=== PATIENT | male | born 1970 | race Caucasian/White ===

== ENCOUNTER 2021-04-09 07:09 | Outpatient (CLI) | payer OTHER ==
[~2021-04-09] VITALS: Ht 182.9 cm; Wt 124.1 kg
[2021-04-14] MEDS ORDERED: TR1C15 TP (14:33)
[2021-04-14] MEDS ORDERED: ATOR20TA66 PO (14:33)
[2021-04-14] MEDS ORDERED: GABA300C PO (14:33)
[2021-04-14] MEDS ORDERED: NAPR500T8 PO (14:33)
[2021-04-14] MEDS ORDERED: PRAZ2CAP2 PO (14:33)
[2021-04-14] MEDS ORDERED: VENL225T PO (14:33)
[2021-04-14] MEDS ORDERED: CYPR4TAB41 PO (14:33)
[2021-04-14] MEDS ORDERED: MELA3CAP2 PO (14:33)
[2021-04-14] MEDS ORDERED: DIVA500T15 PO (14:33)
[2021-04-14] MEDS ORDERED: CETI10TA17 PO (14:33)
[2021-04-14] MEDS ORDERED: OMEP20CA18 PO (14:33)
[2021-04-14] MEDS ORDERED: BUPR150T28 PO (14:33)
[2021-04-14] MEDS ORDERED: ATEN50TA PO (14:33)
[2021-04-14] MEDS ORDERED: PRAZ5CAP2 PO (14:33)
[2021-04-14] MEDS ORDERED: RT-ALBUINH IH (14:33)
== END 2021-04-14 14:45 | disposition home or self-care (01) ==
LOC: PREOP 07:09
PROVIDERS: ATTEND Specialist
DX: Z01.818 Encounter for other preprocedural examination (principal)

== ENCOUNTER 2021-04-26 05:52 | Outpatient (CLI) | payer OTHER ==
[~2021-04-26] VITALS: Ht 182.9 cm; Wt 124.1 kg
[~2021-04-26 05:52] MED LIST: ATEN50TA PO; ATOR20TA66 PO; BUPR150T28 PO; CETI10TA17 PO; CYPR4TAB41 PO; DIVA500T15 PO; GABA300C PO; MELA3CAP2 PO; NAPR500T8 PO; OMEP20CA18 PO; PRAZ2CAP2 PO; PRAZ5CAP2 PO; RT-ALBUINH IH; TR1C15 TP; VENL225T PO
== END 2021-04-27 15:51 | disposition home or self-care (01) ==
LOC: PREOP 05:52
PROVIDERS: ATTEND Specialist
DX: Z01.818 Encounter for other preprocedural examination (principal)

== ENCOUNTER 2021-04-30 10:32 | Day surgery (SDC) | payer OTHER ==
[~2021-04-30] VITALS: Ht 182.9 cm; Wt 124.1 kg
[2021-04-30] MEDS ORDERED: MIDAZOLAM 2 MG/2 ML (VERSED) VIAL ONE (10:45)
[2021-04-30 10:57] VITALS: BP 119/70
[2021-04-30] MEDS: TETRACAINE 0.5% OPHTH SOLN 4 ML BTL (SINGLE DOSE ONLY) OU PRN ×4 (10:58→11:18)
[2021-04-30] MEDS ORDERED: LIDOCAINE PF 1% 2 ML VIAL IR PRN (11:00)
[2021-04-30] MEDS ORDERED: MOXIFLOXACIN OPHTH SOLN 5 MG/ML 0.3 ML SYRINGE OP ONE (11:00)
[2021-04-30] MEDS ORDERED: TIMOLOL MALEATE 0.5% 5 ML (TIMOPTIC) BTL OU PRN (11:00)
[2021-04-30] MEDS ORDERED: POVIDONE (BETADINE) OPHTH SOLN 5% 30 ML OP ONE (11:00)
[2021-04-30] MEDS: TROPICAMIDE 1% OPH SOLN (MYDRIACYL) 15 ML BTL OP SCH ×3 (11:05→11:18)
[2021-04-30] MEDS: PHENYLEPHRINE 10% OPHTH (NEO-SYN) 5 ML BTL OU SCH ×3 (11:05→11:18)
--- NOTE | 2021-04-30 11:38 | Ophthalmologist Pre-Op Note ---
Pre-Operative Progress Note H&P Reviewed The H&P was reviewed, patient examined and no changes noted. Date H&P Reviewed: Apr 30, 2021 Time H&P Reviewed: 11:37 Pre-Op Dx Cataract, Right Eye HENNY COTA MD Apr 30, 2021 11:37
[2021-04-30] MEDS ORDERED: acetaZOLAMIDE ER 500 MG CAP (DIAMOX SEQUELS) PO ONE (12:00)
--- NOTE | 2021-04-30 12:06 | Ophthalmology Operative Report ---
Cataract removal/placement IOL PREOPERATIVE DIAGNOSIS: 1. Mature Cataract Right Eye 2. Stain the anterior capsule with Vision Blue. POSTOPERATIVE DIAGNOSIS: 1. Mature Cataract Right Eye 2. Stain the anterior capsule with Vision Blue. PROCEDURE: 1. Cataract removal and placement of posterior chamber implant, right eye. 2. Stain the anterior capsule with Vision Blue. SURGEON: Mauro Cota ANESTHESIA: Topical with sedation COMPLICATIONS: None ESTIMATED BLOOD LOSS: Minimal DESCRIPTION OF PROCEDURE: After proper informed consent was obtained, the patient was taken to the Operating Room and the right eye was anesthetized with tetracaine. The right eye was then prepped and draped in the usual manner. A wire lid speculum was placed. A paracentesis was made at the left hand position. Preservative free lidocaine was injected into anterior chamber followed by viscoelastic. A clear corneal incision was made in the temporal position. A capsulorrhexis was performed and the central nuclear and cortical material were removed. Vision blue was used to visualize capsule. The posterior capsule was polished and Mp 21.0 AU00T0 IOL was placed into the capsular bag. The residual viscoel astic was aspirated and balanced saline solution was injected into the anterior chamber. Moxifloxacin was injected into the anterior chamber. The wound was checked and found to be water tight. The patient tolerated the procedure well without complications. MAURO COTA MD Apr 30, 2021 12:06
[2021-04-30 12:07] VITALS: BP 124/78
--- NOTE | 2021-04-30 12:29 | Anesthesia-General Post-Op ---
MAC Patient Condition Mental Status/LOC: Same as Preop Cardiovascular: Satisfactory Nausea/Vomiting: Absent Respiratory: Satisfactory Pain: Controlled Complications: Absent Post Op Complications Complications None Follow Up Care/Instructions Patient Instructions None needed. Anesthesiology Discharge Order Discharge Order Patient is doing well, no complaints, stable vital signs, no apparent adverse anesthesia problems. No complications reported per nursing. ONEAL LUCAS CRNA Apr 30, 2021 12:29
== END 2021-04-30 12:10 | disposition home or self-care (01) ==
LOC: SDC 10:32
PROVIDERS: ATTEND Specialist
DX: H25.11 Age-related nuclear cataract, right eye (principal); E78.00 Pure hypercholesterolemia, unspecified; K21.9 Gastro-esophageal reflux disease without esophagitis; E78.5 Hyperlipidemia, unspecified; F41.9 Anxiety disorder, unspecified; F10.29 Alcohol dependence with unspecified alcohol-induced disorder; F33.1 Major depressive disorder, recurrent, moderate; G47.33 Obstructive sleep apnea (adult) (pediatric); E66.09 Other obesity due to excess calories; F43.12 Post-traumatic stress disorder, chronic; F17.210 Nicotine dependence, cigarettes, uncomplicated; Z79.899 Other long term (current) drug therapy; Z68.37 Body mass index [BMI] 37.0-37.9, adult